=== PATIENT | female | born 1980 | race Caucasian/White ===

== ENCOUNTER 2018-07-13 10:13 | Emergency (ER) | payer MEDICAID ==
[~2018-07-13] VITALS: Ht 162.6 cm; Wt 72.6 kg
[2018-07-13 10:13] VITALS: BP_SYST 115
[2018-07-13] MEDS ORDERED: KETOROLAC TROMETHAMINE 30 MG VIAL IVP ONE (11:00)
[2018-07-13 11:21] LABS: BASOPHILS # (AUTO) 0.1 K/uL (0.0-0.2); BASOPHILS % (AUTO) 0.9 % (0.0-2.0); EOSINOPHILS # (AUTO) 0.2 K/uL (0.0-0.4); EOSINOPHILS % (AUTO) 1.5 % (0.0-4.0); HEMOGLOBIN 15.7 g/dL (12.0-16.0); LYMPHOCYTES % (AUTO) 15.3 % (20.5-51.5); MEAN CORPUSCULAR HEMOGLOBIN 31 pg (27-31); MEAN CORPUSCULAR HGB CONC 33 % (32-36); MEAN CORPUSCULAR VOLUME 93 fL (79.0-98.0); MONOCYTES # (AUTO) 0.4 K/uL (0.0-1.0); MONOCYTES % (AUTO) 3.2 % (1.7-9.3); NEUTROPHILS # (AUTO) 10.6 K/uL (1.8-7.7); NEUTROPHILS % (AUTO) 79.1 % (40.0-70.0); PLATELET COUNT (AUTO) 304 K/uL (130-430); RED BLOOD CELL COUNT(AUTO) 5.04 MIL/uL (4.2-6.2); RED CELL DISTRIBUTION WIDTH 11.6 % (9.0-15.0); WHITE BLOOD COUNT (AUTO) 13.3 K/uL (4.8-10.8)
[2018-07-13 11:33] LABS: POTASSIUM 3.6 mmol/L (3.5-5.1)
[2018-07-13 11:34] LABS: CALCIUM 9.4 mg/dL (8.4-11.0); CREATININE 0.71 mg/dL (0.55-1.30)
[2018-07-13 11:38] LABS: ALBUMIN 3.8 g/dL (3.4-4.8)
[2018-07-13 12:34] LABS: BILIRUBIN,URINE NEGATIVE (NEGATIVE); BLOOD, URINE 2+ (NEGATIVE); CLARITY/URINE CLEAR (CLEAR); COLOR,URINE YELLOW (YELLOW); GLUCOSE,URINE NEGATIVE (NEGATIVE); KETONES,URINE NEGATIVE (NEGATIVE); LEUKOCYTE ESTERASE ,URINE 1+ (NEGATIVE); NITRITE, URINE NEGATIVE (NEGATIVE); PROTEIN URINE NEGATIVE (NEGATIVE); UROBILINOGEN,URINE 0.2 (0.2-1.0)
[2018-07-13 12:43] LABS: BACTERIA,URINE FEW /HPF (None Seen); MUCUS,URINE 4+ /LPF (None Seen)
[2018-07-13 13:26] VITALS: BP_SYST 119
== END 2018-07-13 13:24 | disposition home or self-care (01) ==
LOC: SED 10:13
DX: K52.9 Noninfective gastroenteritis and colitis, unspecified (principal); N39.0 Urinary tract infection, site not specified; Z90.49 Acquired absence of other specified parts of digestive tract
CPT/HCPCS: 36415; 74176; 80053; 81000; 81025; 83605; 83690; 85025; 87086; 96374; 99284; J1885

== ENCOUNTER 2019-02-21 09:39 | Emergency (ER) | payer MEDICAID ==
[~2019-02-21] VITALS: Ht 162.6 cm; Wt 68.0 kg
[2019-02-21 09:50] VITALS: BP_SYST 117
--- NOTE | 2019-02-21 09:50 | NUR ---
Patient to ER bed 6 to gown for evaluation. Side rails up. Report given to Bob EMERY.
--- NOTE | 2019-02-21 09:53 | NUR ---
PATIENT COMPLAINING OF FLANK PAIN BUT WORST ON LEFT. PATIENT COMPLAINING OF 8/10 PAIN FOR PAST 3-4 DAYS. PATIENT STATES SHE TOOK IBUPROFEN BUT DIDNT HELP. PATIENT COMPLAINING OF BLOOD IN URINE. PATIENT ALSO COMPLAINING OF PAIN/BURNING WHEN URINATING. PATIENT COMPLAINING OF NAUSEA BUT NO VOMITING. PATIENT DENIES SOB. PATIENT ALERT AND ORIENTED X4.
--- NOTE | 2019-02-21 10:06 | NUR ---
ER Dr. KIM at bedside examining patient.
[2019-02-21] MEDS ORDERED: KETOROLAC TROMETHAMINE 60 MG/2 ML VIAL IM ONE (10:15)
[2019-02-21 10:19] LABS: BILIRUBIN,URINE NEGATIVE (NEGATIVE); BLOOD, URINE 3+ (NEGATIVE); CLARITY/URINE HAZY (CLEAR); COLOR,URINE YELLOW (YELLOW); GLUCOSE,URINE NEGATIVE (NEGATIVE); KETONES,URINE NEGATIVE (NEGATIVE); LEUKOCYTE ESTERASE ,URINE NEGATIVE (NEGATIVE); NITRITE, URINE NEGATIVE (NEGATIVE); PH,URINE 5.5 (5.0-8.0); PROTEIN URINE NEGATIVE (NEGATIVE); UROBILINOGEN,URINE 0.2 (0.2-1.0)
[2019-02-21 10:32] LABS: BACTERIA,URINE MODERATE /HPF (None Seen); MUCUS,URINE 1+ /LPF (None Seen); WBC,URINE 0-3 /HPF (0-3)
--- NOTE | 2019-02-21 11:20 | NUR ---
Patient given written and verbal discharge instructions and verbalizes understanding. ER MD discussed with patient the results and treatment provided. Patient in stable condition. ID arm band removed. Rx of TRAMADOL AND MACROBIB given. Patient educated on pain management and to follow up with PMD. Pain Scale 3/10 TOLERABLE. Opportunity for questions provided and answered. Medication side effect fact sheet provided.
[2019-02-21 11:22] VITALS: BP_SYST 117
[2019-02-23 05:10] LABS: CHLAMYDIA TRACHOMATIS NAA Negative (Negative); NEISSERIA GONORRHOEAE NAA Negative (Negative)
== END 2019-02-21 11:22 | disposition home or self-care (01) ==
LOC: SED 09:39
DX: R10.9 Unspecified abdominal pain (principal); Z90.49 Acquired absence of other specified parts of digestive tract
CPT/HCPCS: 81000; 81025; 87086; 87491; 87591; 96372; 99283; J1885

== ENCOUNTER 2019-08-09 08:34 | Emergency (ER) | payer MEDICAID ==
[~2019-08-09] VITALS: Ht 160 cm; Wt 68.0 kg
--- NOTE | 2019-08-09 08:45 | NUR ---
PATIENT TO ER #2
[2019-08-09 08:48] VITALS: BP_SYST 140
--- NOTE | 2019-08-09 08:55 | NUR ---
PATIENT PRESENTS TO THE ER WITH TWO WEEK HX OF COUGH AND PAIN TO LOWER BACK AND STERNUM DURING COUGHING SPELL; NO TRAUMA, NO OTHER REMARKABLE S/S
[2019-08-09 10:05] VITALS: BP_SYST 105
--- NOTE | 2019-08-09 10:07 | NUR ---
REASSESSMENT BY ERMD; ACI GIVEN AND PATIENT INDICATED FULL UNDERSTANDING; DISCHARGED AMBULATORY; UNCHANGED
== END 2019-08-09 10:05 | disposition home or self-care (01) ==
LOC: SED 08:34
DX: J40 Bronchitis, not specified as acute or chronic (principal)
CPT/HCPCS: 99283

== ENCOUNTER 2021-01-15 10:31 | Emergency (ER) | payer MEDICAID ==
[~2021-01-15] VITALS: Ht 162.6 cm; Wt 72.6 kg
[2021-01-15 10:31] VITALS: BP_SYST 127
[2021-01-15] MEDS ORDERED: KETOROLAC TROMETHAMINE 30 MG VIAL IM ONE (11:15)
[2021-01-15] MEDS ORDERED: NAPR-1172 PO (12:24)
[2021-01-15 12:39] VITALS: BP_SYST 127
== END 2021-01-15 12:30 | disposition home or self-care (01) ==
LOC: SED 10:31
DX: M25.561 Pain in right knee (principal); M25.562 Pain in left knee; Z79.899 Other long term (current) drug therapy
CPT/HCPCS: 73590; 96372; 99283; J1885

== ENCOUNTER 2022-01-24 13:45 | Emergency (ER) | payer MEDICAID ==
[~2022-01-24] VITALS: Ht 162.6 cm; Wt 68.0 kg
[~2022-01-24 13:45] MED LIST: NAPR-1172 PO
[2022-01-24 14:14] VITALS: BP_SYST 119
--- NOTE | 2022-01-24 15:10 | NUR ---
Pt presents to the ER bib self. CC Neck pain r/t mechanical fall on Wednesday 4 days ago. Pt states was "skating" and fell down injuring back of left calf and feeling pain in the general posterior of neck. Pt notes slight headache and fatigue. Pt denies N/V/D, repirations or even and unlabored. Skin intact.
--- NOTE | 2022-01-24 16:17 | NUR ---
Pt states on her menses at this time without .
--- NOTE | 2022-01-24 16:20 | NUR ---
ER at bedside examining patient.
--- NOTE | 2022-01-24 16:47 | NUR ---
Pt with histology technician Zak via w/c.
[2022-01-24] MEDS ORDERED: IBUP-1969 PO (17:42)
[2022-01-24] MEDS ORDERED: HYDR-3917 PO (17:42)
[2022-01-24 18:51] VITALS: BP_SYST 128
== END 2022-01-24 18:51 | disposition home or self-care (01) ==
LOC: SED 13:45
DX: S13.4XXA Sprain of ligaments of cervical spine, initial encounter (principal); S00.83XA Contusion of other part of head, initial encounter; W01.0XXA Fall on same level from slipping, tripping and stumbling without subsequent striking against object, initial encounter; Y93.B9 Activity, other involving muscle strengthening exercises; Y92.89 Other specified places as the place of occurrence of the external cause; Y99.8 Other external cause status
CPT/HCPCS: 70450-TC; 72125-TC; 76376; 99284

== ENCOUNTER 2023-08-16 11:16 | Emergency (ER) | payer MEDICAID ==
[~2023-08-16] VITALS: Ht 162.6 cm; Wt 68.0 kg
[~2023-08-16 11:16] MED LIST changes: +HYDR-3917 PO; +IBUP-1969 PO
[2023-08-16 11:40] VITALS: BP_SYST 111; PULSE 63; RESP 16; TEMP 97.2; O2SAT 99
[2023-08-16] MEDS: KETOROLAC TROMETHAMINE 30 MG VIAL IM ONE (12:22)
[2023-08-16 12:46] LABS: BILIRUBIN,URINE NEGATIVE (NEGATIVE); BLOOD, URINE NEGATIVE (NEGATIVE); CLARITY/URINE CLEAR (CLEAR); COLOR,URINE YELLOW (YELLOW); GLUCOSE,URINE NEGATIVE (NEGATIVE); KETONES,URINE NEGATIVE (NEGATIVE); LEUKOCYTE ESTERASE ,URINE NEGATIVE (NEGATIVE); NITRITE, URINE NEGATIVE (NEGATIVE); PH,URINE 7.5 (5.0-8.0); PROTEIN URINE NEGATIVE (NEGATIVE); UROBILINOGEN,URINE 0.2 (0.2-1.0)
[2023-08-16 12:55] LABS: CALCIUM 9.2 mg/dL (8.4-11.0); CREATININE 0.73 mg/dL (0.55-1.30)
[2023-08-16 13:03] LABS: POTASSIUM 4.2 mmol/L (3.5-5.1)
[2023-08-16 13:07] LABS: BASOPHILS # (AUTO) 0.1 K/uL (0.0-0.2); BASOPHILS % (AUTO) 0.5 % (0.0-2.0); EOSINOPHILS # (AUTO) 0.3 K/uL (0.0-0.4); EOSINOPHILS % (AUTO) 2.2 % (0.0-4.0); HEMATOCRIT 40.6 % (36-48); HEMOGLOBIN 13.7 g/dL (12.0-16.0); LYMPHOCYTES # (AUTO) 3.1 K/uL (1.0-5.5); MEAN CORPUSCULAR HEMOGLOBIN 31 pg (27-31); MEAN CORPUSCULAR HGB CONC 34 % (32-36); MEAN CORPUSCULAR VOLUME 92 fL (79.0-98.0); MONOCYTES # (AUTO) 0.6 K/uL (0.0-1.0); MONOCYTES % (AUTO) 4.9 % (1.7-9.3); NEUTROPHILS # (AUTO) 8.5 K/uL (1.8-7.7); NEUTROPHILS % (AUTO) 67.4 % (40.0-70.0); RED BLOOD CELL COUNT(AUTO) 4.42 MIL/uL (4.2-6.2); RED CELL DISTRIBUTION WIDTH 13.4 % (9.0-15.0); WHITE BLOOD COUNT (AUTO) 12.6 K/uL (4.8-10.8)
[2023-08-16] MEDS ORDERED: HYDR-3917 PO (13:42)
[2023-08-16 13:46] VITALS: BP_SYST 111; PULSE 63; RESP 18; TEMP 97.2; O2SAT 99
[2023-08-16 14:01] LABS: PLATELET COUNT (AUTO) 292 K/uL (130-430)
== END 2023-08-16 13:46 | disposition home or self-care (01) ==
LOC: SED 11:16
DX: R10.30 Lower abdominal pain, unspecified (principal); Z79.899 Other long term (current) drug therapy
CPT/HCPCS: 99285; 74176; 80048; 81001; 85025; 36415; 81025; 96372; 81003; J1885